=== PATIENT | male | born 1960 | race Caucasian/White ===

== ENCOUNTER 2024-01-15 16:20 | Emergency (ER) | payer OTHER ==
[~2024-01-15] VITALS: Ht 172.7 cm; Wt 65.8 kg
[2024-01-15 16:34] VITALS: BP 121/69; TEMP 97.9; O2SAT 99
== END 2024-01-15 16:34 ==
LOC: ER 16:20
DX: Z00.00 Encounter for general adult medical examination without abnormal findings (principal); K74.60 Unspecified cirrhosis of liver; F15.10 Other stimulant abuse, uncomplicated